=== PATIENT | female | born 1985 | race Caucasian/White ===

== ENCOUNTER 2022-04-30 11:55 | Outpatient (CLI) | payer SELFPAY ==
--- NOTE | 2022-04-30 12:15 | CRLHL7_ITS ---
For Patients: As a result of the Century Cures Act, medical imaging exams and procedure reports are released immediately into your electronic medical record. You may view this report before your referring provider. If you have questions, please contact your health care provider. INDICATION: Evaluate anatomy. COMPARISON: none TECHNIQUE: Real time langley scale imaging of the fetus was performed as well as color Doppler analysis of the umbilical vessels. FINDINGS: Sonographic imaging demonstrates a single living intrauterine gestation. Fetus demonstrates a regular cardiac rate of 150 beats per minute. Fetus has a variable position. The placenta lies anteriorly without evidence of placenta previa. The edge of the placenta is located 5.9 cm from the internal cervical os. Amniotic fluid volume appears normal. Single deepest vertical pocket: 5.7 cm. The cervix is closed and measures 4.3 cm in length. Lower right uterine fibroid is present measuring 3.5 x 2.4 x 3.4 cm. The composite ultrasound gestational age is calculated at 20 weeks 4 days with an estimated sonographic due date of 09/13/2022. The estimated weight is 347 grams which lies at the 73rd %. The following biometric measurements were obtained: Biparietal diameter: 4.7 cm/20 weeks 1 day 63rd% Head circumference: 17.9 cm/20 weeks 2 days 65th% Abdominal circumference: 15.9 cm/21 weeks 0 days 80th% Femur length: 3.1 cm/19 weeks 4 days 32nd% The HC/AC ratio measures: 1.13 range (1.07-1.25) On anatomic survey, there is a normal appearance of the cerebral ventricles, cavum septi pellucidi, cisterna magna and cerebellum. The nose, lips, and facial profile appear normal. The cervical, thoracic and lumbar spine are well visualized and appear normal. There is a normal four-chamber heart view and the left and right ventricular outflow tracts appear normal. The diaphragm and stomach appear normal. The kidneys and bladder also appear normal. There is a normal three-vessel cord and cord insertion site. The four extremities appear normal. IMPRESSION: Concordance of clinical and sonographic dating. No intrinsic abnormalities noted on anatomic survey. Right lower uterine fibroid measuring 3.5 x 2.4 x 3.4 cm. Dictated by Pradip Cantu MD @ 05/01/2022 3:42:26 PM (Electronically Signed)
== END 2022-04-30 11:56 | disposition home or self-care (01) ==
LOC: US 11:57
PROVIDERS: Visit Provider Advanced Practice Midwife
DX: Z34.92 Encounter for supervision of normal pregnancy, unspecified, second trimester (principal); Z3A.20 20 weeks gestation of pregnancy
CPT/HCPCS: 76805

== ENCOUNTER 2022-04-30 14:05 | Outpatient (CLI) | payer SELFPAY ==
[2022-04-30 16:32] LABS: Hepatitis B Surface Antigen* Negative (Negative)
[2022-04-30 16:40] LABS: HIV 1/2/P24 Combo Screen* Negative (Negative)
[2022-04-30 16:49] LABS: Hepatitis C Virus Antibody* Negative (Negative)
[2022-05-02 18:48] LABS: Rubella Antibody IgG 49.2 IU/mL; Varicella-Zoster Virus Ab, IgG 897.5 IV
[2022-05-03 01:21] LABS: Rapid Plasma Reagin (RPR) Non Reactive (Non Reactive)
== END 2022-04-30 14:06 | disposition home or self-care (01) ==
PROVIDERS: Visit Provider Advanced Practice Midwife
DX: Z34.92 Encounter for supervision of normal pregnancy, unspecified, second trimester (principal); O34.12 Maternal care for benign tumor of corpus uteri, second trimester; Z3A.20 20 weeks gestation of pregnancy
CPT/HCPCS: 86592; 86703; 86762; 86787; 86803; 86850; 86900; 86901; 87086; 87340

== ENCOUNTER 2022-07-02 15:11 | Outpatient (CLI) | payer SELFPAY ==
[2022-07-02 13:25] LABS: Amphetamine Screen Urine Negative (Negative); Barbiturate Screen Urine Negative (Negative); Benzodiazepines Screen Urine Negative (Negative); Cannabinoid Screen Urine Negative (Negative); Cocaine Screen Urine Negative (Negative); Methadone Screen Urine Negative (Negative); Methamphetamines Screen Urine Negative (Negative); Opiate Screen Urine Negative (Negative); Oxycodone Screen Urine Negative (Negative); Phencyclidine Screen Urine Negative (Negative); Tricyclic Antidepressant Urine Negative (Negative)
[2022-07-04 00:45] LABS: Rapid Plasma Reagin (RPR) Non Reactive (Non Reactive)
== END 2022-07-02 15:12 | disposition home or self-care (01) ==
PROVIDERS: Visit Provider Advanced Practice Midwife
DX: O09.523 Supervision of elderly multigravida, third trimester (principal); Z3A.29 29 weeks gestation of pregnancy
CPT/HCPCS: 80306; 86592

== ENCOUNTER 2022-08-23 09:11 | Outpatient (CLI) | payer SELFPAY ==
--- NOTE | 2022-08-23 09:15 | CRLHL7_ITS ---
For Patients: As a result of the Century Cures Act, medical imaging exams and procedure reports are released immediately into your electronic medical record. You may view this report before your referring provider. If you have questions, please contact your health care provider. INDICATION: Third trimester scan, evaluate growth. MEASURING LARGE FOR DATES COMPARISON: 04/30/2026 TECHNIQUE: Real time langley scale imaging of the fetus was performed. FINDINGS: Sonographic imaging demonstrates a single living intrauterine gestation. Fetus demonstrates a regular cardiac rate of 147 beats per minute. Fetus has a vertex position. The placenta lies anteriorly. Amniotic fluid volume appears normal and there is a single deepest vertical pocket: 7.6 cm. The estimated weight is 3068gm which lies at the 64th %. On the prior OB ultrasound exam dated 04/30/2022 the estimated weight was at the 73rd%. BPD 49th percentile. HC 71st percentile. AC 90th percentile. FL 7th percentile. The HC/AC ratio measures 0.99 range (0.92-1.06). IMPRESSION: Sonographic gestational age 36 weeks 5 days and sonographic due date 09/15/2022. Good correlation with dates. Normal interval growth. Estimated weight 64th percentile. Abdominal circumference 90th percentile. Anterior uterine fibroid again noted measuring 2.7 x 1.9 x 3.2 cm. Dictated by Pradip Cantu MD @ 08/23/2022 10:24:16 AM (Electronically Signed)
== END 2022-08-23 09:12 | disposition home or self-care (01) ==
LOC: US 09:12
PROVIDERS: Visit Provider Advanced Practice Midwife
DX: O36.63X0 Maternal care for excessive fetal growth, third trimester, not applicable or unspecified (principal); O34.13 Maternal care for benign tumor of corpus uteri, third trimester; Z3A.36 36 weeks gestation of pregnancy
CPT/HCPCS: 76816

== ENCOUNTER 2022-08-23 11:05 | Outpatient (CLI) | payer SELFPAY ==
[2022-08-24 22:23] LABS: Strep B DNA Probe NEGATIVE (Negative)
[2022-08-24 22:51] LABS: Strep B Pen/Amox Allergy No
== END 2022-08-23 11:06 | disposition home or self-care (01) ==
LOC: NFLDREF 11:05
PROVIDERS: Visit Provider Advanced Practice Midwife
DX: Z34.83 Encounter for supervision of other normal pregnancy, third trimester (principal); Z3A.36 36 weeks gestation of pregnancy
CPT/HCPCS: 87081; 87653

== ENCOUNTER 2022-09-19 19:28 | Outpatient (CLI) | payer SELFPAY ==
[2022-09-19 19:43] VITALS: BP 149/85; PULSE 89; RESP 18; TEMP 36.7; O2SAT 99; BMI 35.7
--- NOTE | 2022-09-19 20:01 | ED.NURSE ---
OB at the bedside
--- NOTE | 2022-09-19 20:26 | ED.NURSE ---
Patient ambulated to the bathroom without assistance. Patient steady on her feet. Denies any dizziness.
--- NOTE | 2022-09-19 20:56 | ED_ITS ---
HPI - General Adult General Chief complaint: Head Injury/Pain Stated complaint: Fell on ice, Hit head, 40 weeks 3 days Time Seen by Provider: 09/19/22 20:20 Source: patient Mode of arrival: ambulatory Limitations: no limitations History of Present Illness HPI narrative: 36-year-old female 40+ 3 weeks with her 3rd child presents to the emergency department after head injury. She reports that she slipped on the ice, falling backwards onto her butt and then down to her head. She notes swelling in the back of her head. No loss of consciousness, no anticoagulant use. The baby has been moving very well. She has felt a couple of contractions but none serious. No bleeding, no leakage of fluid. No chest pain, no back pain, no shortness of breath. She feels a ?goose egg? on the occipital area of her scalp. No vision changes. Did feel a little dizzy and nauseated immediately after the episode but nothing since. Has a mild headache since the fall but not prior. No neurological changes noted. Did have a concussion in her 20s, no history of seizure disorder. No history of severe head injuries. No recent surgeries. Past medical history reviewed from her Ob records. Most notable for term , currently doing any time. No long-term medications, no allergies. Is currently on prophylactic valacyclovir. No tobacco or alcohol intoxication. ROS notable for the had an OB symptoms as above, otherwise denies times 12 systems. Related Data Previous Rx's Medication Instructions Recorded valacyclovir 500 mg tablet 500 mg PO BID #60 tabs 09/06/22 (Valtrex) Allergies Allergy/AdvReac Type Severity Reaction Status Date / Time No Known Drug Allergies Allergy Verified 09/19/22 19:46 PFSH PFS Medical History Macrosomic baby Normal spontaneous vaginal delivery Surgical History No significant past surgical history Family History Maternal Grandmother Ovarian cancer Mother Ovarian cancer Paternal Grandfather Bone cancer Prostate cancer Father No problems noted. 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 Partner: Jordan, owns [employer] Lives with: Lives together with children (Camilo and Stefano) Pets: 4 horses and 2 cats Abuse: Denies past/present Special Diet: Denies Ok with a blood transfusion: yes Culture or oriental orthodox beliefs: denies RISK FACTORS Exercise Times/wk: Walk, weight lifting, yoga Depression/Anxiety: denies MULU: 1 PHQ 9: 1 Seat Belt Use: Routinely Smoking: Denies present, 19 years ago Alcohol/day: Denies while , occasional Caffeine: none currently Drug Use: Denies past/present Chicken Pox: Yes as a child MRSA: Denies Smoking Status: Never smoker Little interest or pleasure in doing things: not at all Feeling down, depressed, or hopeless: not at all Exam Const: Vital Signs, click to edit/add: Vital Signs - 24 hr 09/19/22 19:43 Temperature 98.1 F Pulse Rate [Right Pulse Oximeter] 89 Respiratory Rate 18 Blood Pressure [Ri ght Upper Arm] 149/85 H Pulse Oximetry 99 Oxygen Delivery Me thod Room Air Documenting provider has reviewed patient's vital signs: yes Common normals: no apparent distress General appearance: cooperative and well kempt Orientation/consciousness: Yes awake HENMT: Common normals: TM's normal bilaterally Face and sinus: normal facial exam Tympanic membrane: TM's normal bilaterally Mouth: oral and palatal mucosa normal Throat: posterior oropharynx normal Other: Mild swelling, superficial subcutaneous on the occiput of the head. No depression or skull fracture. No active bleeding. Eye: Common normals: PERRL, EOMs intact bilaterally and conjunctivae normal General eye: normal appearance of both eyes Conjunctiva: conjunctiva(e) normal Pupil: PERRL Neck & C-Spine: Common normals: full ROM and no lymphadenopathy Resp: Common normals: normal respiratory effort, no use of accessory muscles and clear to auscultation bilaterally Effort & inspection: able to speak in complete sentences Auscultation: clear to auscultation bilaterally Cardio: Common normals: regular rate, regular rhythm, S1 normal heart sound, S2 normal heart sound, no murmurs and peripheral pulses 2+ throughout Rate: regular rate Rhythm: regular rhythm Heart sounds: S1 normal and S2 normal Peripheral pulses: pulses 2+ throughout GI: Other: Term fundal height. monitor showing lots of active movement, accelerations noted on tracing and also with auscultation during interview. Fundus is nontender. Back & Pelvis: Other: No point bony tenderness to thoracolumbar spine. Can ambulate without significant difficulty. No tenderness to palpation of external hips or pelvis Neuro: [place] Coma Scale: document GCS findings [place] coma scale eye opening: Spontaneous (4) [place] coma scale verbal response: Orientated (5) [place] coma scale motor response: Obey commands (6) [place] coma scale total score: 15 Sensorium/orientation: awake Cranial nerves: CN IX and CN X (glossopharyngeal/vagus) Speech: speech normal Psych: Appearance: well kempt Attitude: engaged Activity/motor behavior: appropriate eye contact Mood and affect: euthymic mood Insight: insight good Judgement: judgment good Skin: Common normals: no rashes or lesions noted General skin exam: no rashes or lesions noted Course Vital Signs Vital signs: Initial Vital Signs Temperature 98.1 F 09/19/22 19:43 Temperature Source Temporal Artery Scan 09/19/22 19:43 Pulse Rate 89 09/19/22 19:43 Respiratory Rate 18 09/19/22 19:43 Blood Pressure 149/85 H 09/19/22 19:43 Blood Pressure Mean 106 09/19/22 19:43 Blood Pressure Position Sitting 09/19/22 19:43 Pulse Oximetry 99 09/19/22 19:43 Oxygen Delivery Method 09/19/22 19:43 Vital Signs Temperature 98.1 F 09/19/22 19:43 Pulse Rate 89 09/19/22 19:43 Respiratory Rate 18 09/19/22 19:43 Blood Pressure 149/85 H 09/19/22 19:43 Pulse Oximetry 99 09/19/22 19:43 Oxygen Delivery Method 09/19/22 19:43 Temperature 98.3 F 09/19/22 21:56 Pulse Rate 75 09/19/22 21:56 Respiratory Rate 16 09/19/22 21:56 Blood Pressure 140/81 H 09/19/22 21:56 Pulse Oximetry 99 09/19/22 19:43 Oxygen Delivery Method 09/19/22 19:43 Medical Decision Making MDM Narrative Medical decision making narrative: No evidence of skull fracture. Will likely develop symptoms of mild concussion. No evidence of intracranial hemorrhage. Do not recommend CT scan. Excellent movement noted. Ob provider recommending 4 hours of monitoring, I agree. Patient will be transferred down to OB. They will notify us if there are any neurological changes. She may be discharged after her Ob observation if there are no further neurological changes. Okay to give Tylenol for headache. Signs and symptoms of concussion were discussed. No care management is needed for the occipital hematoma. Category 1 heart tracing reviewed for time in ED. Discharge Plan Discharge Clinical Impression: Head injury, Concussion without loss of consciousness, Hematoma of occipital region of scalp Patient Disposition: Home w/ Parent or Adult Condition: Stable Activity Level: Activity as Tolerated
[2022-09-19 21:55] VITALS: BP 140/86; PULSE 80
[2022-09-19 21:56] VITALS: BP 140/81; PULSE 75; RESP 16; TEMP 36.8
[2022-09-19 23:57] VITALS: BP 118/69; PULSE 80
--- NOTE | 2022-09-20 01:07 | PC.OBNST ---
NST Note NST Note Start: 09/19/22 21:41 Freq: ONCE Status: Active Protocol: Document 09/20/22 00:58 AM (Rec: 09/20/22 00:59 AM [email or web address]) NST Note 3 Para (# of births) 2 EDC 09/16/22 Gestational Age In Weeks & Days 40 Weeks & 4 Days Patient Presented with Complaint(s) of Other Other Complaints Fall with head injury Reactive Yes Appropriate for Gestational Age Yes RN Palak RNC Date 09/20/22 Reactive Yes Appropriate for Gestational Age Yes RN Cornelius RN Date 09/20/22 OB NST charge Yes Complete NST Note via Write Note Yes The provider's electronic signature indicates the NST is reactive/appropriate for gestational age. *Note to provider: If an addendum is required, open the patient's chart and click on the note under the Nurse/Allied Health tab.
== END 2022-09-20 00:30 | disposition home or self-care (01) ==
LOC: ED 21:12 → OB 21:20 → ED 21:28 → OB 21:37 → OB OUT 09-20 12:31
PROVIDERS: Emergency Provider Family Medicine; Visit Provider Advanced Practice Midwife
DX: O26.893 Other specified pregnancy related conditions, third trimester (principal); W19.XXXA Unspecified fall, initial encounter; Z3A.40 40 weeks gestation of pregnancy
CPT/HCPCS: 59025; 99213; 99283

== ENCOUNTER 2022-09-25 11:29 | Outpatient (CLI) | payer SELFPAY ==
[2022-09-25 12:02] VITALS: PULSE 85; O2SAT 97
[2022-09-25 12:03] VITALS: BP 122/81; PULSE 87; RESP 16; TEMP 37.3
== END 2022-09-25 14:45 | disposition home or self-care (01) ==
LOC: OB OUT 11:32 → OB 11:33
PROVIDERS: Visit Provider Advanced Practice Midwife
DX: O48.0 Post-term pregnancy (principal)
CPT/HCPCS: 59025; 99213

== ENCOUNTER 2022-09-27 13:57 | Outpatient (CLI) | payer SELFPAY ==
--- NOTE | 2022-09-27 14:00 | CRLHL7_ITS ---
For Patients: As a result of the Century Cures Act, medical imaging exams and procedure reports are released immediately into your electronic medical record. You may view this report before your referring provider. If you have questions, please contact your health care provider. OB ULTRASOUND AND BIOPHYSICAL PROFILE TALIA by LMP: 09/16/2022. GA: 41_w, 4 d. Single gestation. INDICATION: Post dates. CERVIX: Not visualized. POSITIONING: Vertex. AMNIOTIC FLUID: 3.8 cm. BIOPHYSICAL PROFILE: Total score: 8. Gross body movements: 2. tone: 2. Respiratory activity: 2. Amniotic fluid: 2. (SDP N: Increase 2 x 1 cm) PLACENTA: Technique: Transabdominal. PLACENTA POSITION: Anterior left wall. DOPPLER: heart rate: 145 bpm. IMPRESSION: Biophysical profile score 8/8. ROLA KEBEDE M.D. Transcribed: 4:15 p.m. [email or web address] be/Dictated by: Rola Kebede MD @ 09/27/2022 3:05:00 PM (Electronically Signed)
== END 2022-09-27 13:58 | disposition home or self-care (01) ==
LOC: US 13:58
PROVIDERS: Visit Provider Advanced Practice Midwife
DX: O48.0 Post-term pregnancy (principal)
CPT/HCPCS: 76819

== ENCOUNTER 2022-09-30 15:56 | Outpatient (CLI) | payer SELFPAY ==
--- NOTE | 2022-09-30 16:00 | CRLHL7_ITS ---
For Patients: As a result of the Century Cures Act, medical imaging exams and procedure reports are released immediately into your electronic medical record. You may view this report before your referring provider. If you have questions, please contact your health care provider. INDICATION: female. Post dates. TECHNIQUE: Obstetrical ultrasound. COMPARISON: September 27, 2022. FINDINGS: Single living intrauterine in vertex presentation. Anterior placenta. heart rate 134 beats per minute. Normal amniotic fluid. Single deepest pocket measurement 5.6 cm. Biophysical profile score 8/8 with 2 points given each for breathing, movement, tone, and amniotic fluid. Biparietal diameter 9.4 cm, 38 weeks 3 days. Head circumference 34.4 cm, 39 weeks 6 days. Abdominal circumference 35.4 cm, 39 weeks 2 days. Femur length 7.3 cm, 37 weeks 3 days. Composite calculated ultrasound age 38 weeks 5 days with a sonographic due date of October 09, 2022. Estimated weight 3,609 g. IMPRESSION: Single living intrauterine in vertex presentation with an anterior placenta. Composite calculated ultrasound age 38 weeks 5 days. Biophysical profile score 8/8. Dictated by Homer Agudelo MD @ 09/30/2022 9:46:12 PM (Electronically Signed)
== END 2022-09-30 15:57 | disposition home or self-care (01) ==
LOC: US 15:57
PROVIDERS: Visit Provider Advanced Practice Midwife
DX: O48.0 Post-term pregnancy (principal)
CPT/HCPCS: 76816; 76819

== ENCOUNTER 2022-10-01 00:41 | Inpatient (IN) | payer SELFPAY ==
[2022-09-30 20:42] VITALS: BP 144/80; PULSE 97; RESP 18; TEMP 36.6
[2022-09-30 21:06] VITALS: BP 124/72; PULSE 95
--- NOTE | 2022-09-30 22:18 | W.PM.LDBA ---
Subjective History of Present Illness Date Seen: 09/30/22 Narrative: Patient is being admitted to Labor and Delivery for labor. She is a 36 year old at 42.0 weeks gestation. Her full history and physical was dictated by MARK Araujo and Heriberto Ty CNM on 08/30/2022. Please see this for details. Radha began vera this morning. They have been irregular but present all day. Over the course of the evening they increased in frequency and intensity. She had a small gush of clear fluid around 1900 this evening and states that she has changed her pad a couple of times since but hasn't had large amounts of fluid. Possible SROM at that time but will monitor discharge. She is appreciating good movement. She is planning on using hypno-birthing and plans on a water . 1. Late entry to care Knew she was but didn't seek care until 20 1/7 weeks gestation UDS 07/02/2022: neg 2. Uterine fibroid 3.5x2.4x3.4 cm, right lower position. On 08/23/22?2.7 x 1.9 x 3.2 cm 3. AMA, Age 36 Genetic screening: declined Level II: n/a, late care with anatomy scan done at [facility] 4. Measuring large for dates @ 34w Growth @ 36w - Normal interval growth. EFW 64th%. Abdominal circumference 90th percentile. 5. Cold sores - denies genital herpes - valtrex script requested and sent 08/09/22 6. Concussion from fall on ice 09/20/2022 Elevated BP in ER, resolved with tylenol and rest Fall on her right side on 09/25 without trama to her belly. OB - Problem Based A/P Additional Plan (1) Pain during labor: Status: Acute (2) Post-dates : Status: Acute (3) Advanced maternal age (AMA) in : Status: Acute (4) Fall due to ice or snow: Status: Acute (5) Head injury: Status: Acute Plan ASSESSMENT:? at 42.0 weeks gestation? GBS negative? Uncomplicated ? Labor post dates. ?? PLAN:? 1. Desires water . Consent signed. Hep C negative.? 2. Candidate for analgesia of choice. Planning unmedicated .? 3. Anticipate ? 4. Expectant management at this time.? 5. IV placement not needed at this time. Consider if patient condition warrants per protocol. 6. Reactive tracing obtained. Intermittent auscultation. Consider intermittent or continuous monitoring if condition changes per unit policy. Delivery/Labor/Induction Plan Plan: expectant management OB Result Labs Blood Type: O (+) positive GBS Status: negative OB Exam Physical Exam Vital signs: Temp Pulse Resp BP 98 F 95 18 124/72 09/30/22 20:42 09/30/22 21:06 09/30/22 20:42 09/30/22 21:06 Narrative: Vitals per EMR? Psychiatric:? Alert and oriented x3? HEENT:? Normocephalic, atraumatic? Neck:? Supple without adenopathy or thyromegaly? Lungs:? Clear to auscultation bilaterally? Heart:? Regular rate and rhythm, no murmur, rub or gallop? Abdomen:? Soft, nontender, and gravid? Extremities:? No edema or erythema? Pelvic:? SVE: 4cm/75%/-1 per RN exam? Membrane status:? possibly ruptured. She feels that she has been leaking a small amount of clear fluid since around 1900.? presentation:? vertex? FHT:? Moderate Variability.? Positive Accels.? No Decels. Baseline 135.? [place]:? Ctx Q3-6min? Detailed Labor and Delivery Exam Patient Gravid: Yes Dilation (cm): 4 Effacement (%): 75 Contraction Frequency: 3-6min Contraction intensity: Moderate Fetus (Single) Station: -1 Heart Rate Baseline: 135 Monitor Accelerations: Present Monitor Decelerations: None Half-Way Variability: Moderate (6-25)
[2022-09-30 22:20] LABS: SARS PCR* Negative SARS-CoV-2 (Negative)
[2022-09-30 22:30] VITALS: TEMP 36.6
[2022-09-30 22:52] VITALS: BMI 37.6
[2022-10-01] VITALS (24 sets, daily range): BP systolic 102–135; BP diastolic 56–79; PULSE 83–98; RESP 16–18; TEMP 36.4–37; O2SAT 97
[2022-10-01] MEDS: IBUPROFEN 600 MG TABLET PO ×4 (02:45→21:48)
--- NOTE | 2022-10-01 03:02 | W.PM.VAGDELN ---
OB Procedure Vag Delivery Mother Details Mother Details: The patient is a 36 year-old, 3, now Para 3, admitted on 09/30/22 at 42.0 Days gestation. Cervical exam on admission was 4 cm/75 % effaced/-1 station with membranes ruptured in vertex presentation.? Contractions were every 4-6 minutes.? heart rate demonstrated baseline 135 bpm with moderate variability, + accelerations, - decelerations; a category 1 tracing.? SROM occurred at 1905 with clear fluid.?Radha progressed well in labor changing positions frequently supported by her and staff. She choose to get into the tub and started to feel the urge to pushnat that time. She pushed well and delivered in the tub. : 3 Para: 3 Weeks Gestation: 42.0 Admission Date: 09/30/22 Additional Details Amniotic Membrane Status: SROM Amniotic Membrane Rupture Date: 09/30/22 Amniotic Membrane Rupture Time: 19:05 Amniotic Membrane Fluid Description: Clear Analgesia/Anesthesia Type: None Waterbirth: Yes [place]: No Intrapartal Events: None Complete: 01:50 (presumed with pushing) Pushin:50 Heart: heart tones during second stage were dopplered in the 120-130's. No decelerations heard. Delivery Details Delivery Date: 10/01/22 Delivery Time: 02:02 Route of delivery: Infant Gender: Male Viability: Alive; Heart Rate Present Position at Delivery: OA (ENIO) Delivery Details: Delivered over intact perineum via spontaneous vaginal delivery. Infant was placed on maternal abdomen.? Cord was clamped and cut after a >5min delay. Nose and mouth were bulb suctioned.? Infant weight pending. 1 Minute Interval Total Score: 8 5 Minute Interval Total Score: 8 Additional Details Shoulder Dystocia: No Placenta Delivery Time: 02:16 Placental Delivery Description: Spontaneous Delivery repair: Vicryl Procedure Done: Global Estimated Blood Loss: 125 (75 QBL and 50 EBL in the tub) Laceration: Perineal - 2nd Degree Episiotomy Description: None Blood Loss Measurement Type: QBL Bakri Used: No Sponge/Need Count Correct: Yes Cord Vessel Description: Nuchal Cord (3 vessel nuchal cord x2. baby was summersaulted at deliver keeping the head close to the perinium. the cord was reduced after delivery. ) Event Summary Status: Mother and infant were stable after delivery.
[2022-10-01] MEDS: ACETAMINOPHEN 500 MG TABLET 1000 MG PO ×3 (04:44→18:12)
[2022-10-01] MEDS: LIDOCAINE 1 % PF 30 ML INJECTION (04:47)
[2022-10-01] MEDS: DOCUSATE SODIUM 100 MG CAPSULE PO (08:05)
[2022-10-01] MEDS: SIMETHICONE 80 MG TAB.CHEW PO (15:38)
[2022-10-02 01:30] VITALS: BP 112/72; PULSE 98; RESP 16; TEMP 36.8; O2SAT 96
[2022-10-02] MEDS: ACETAMINOPHEN 500 MG TABLET 1000 MG PO (01:42)
[2022-10-02] MEDS: IBUPROFEN 600 MG TABLET PO (06:32)
--- NOTE | 2022-10-02 08:39 | PM.OBDSVD1 ---
DS: Providers Provider Date Seen: 10/02/22 Date of admission: 10/01/22 00:41 Primary care physician: Not a Local Provider Admitting Clinician: Theresa Luis CNM Attending Physician on discharge: MARK Garcia with supervision by Cecilia Ty CNM Date of Discharge: 10/02/22 DS: Diagnosis Discharge Diagnosis (1) care and examination immediately after delivery: Status: Acute (2) Lactating mother: Status: Acute Exam Narrative: Exam Narrative: GENERAL APPEARANCE:? normal affect, alert, no distress? MOOD:? appropriate? CHEST:? clear to auscultation? HEART:? regular rate and rhythm? ABDOMEN:? soft, non-tender the uterine fundus is At Umbilicus, Midline and is appropriate for the stage of recovery.? PERINEUM:? mild edema of the perineum, there is a Perineal Laceration,? first degree that is healing well.? EXTREMITIES:? normal and trace edema? Const: Vital Signs, click to edit/add: Vital Signs - 24 hr 10/01/22 12:47 10/01/22 15:40 10/01/22 20:15 Temperature 98.1 F 97.5 F L 97.8 F Pulse Rate [Bilate ral] 95 94 98 Respiratory Rate 16 16 16 Blood Pressure [Le ft Arm] 118/68 102/67 122/78 Pulse Oximetry 97 97 97 Oxygen Delivery Me thod Room Air Room Air Room Air 10/02/22 01:30 Temperature 98.2 F Pulse Rate [Bilate ral] 98 Respiratory Rate 16 Blood Pressure [Le ft Arm] 112/72 Pulse Oximetry 96 Oxygen Delivery Me thod Room Air Documenting provider has reviewed patient's vital signs: yes OB - DS: Summary Hospital Course Hospital Course: Radha is a 36 year old G 3 now P 3 at 42.1 weeks gestation that was admitted to the Center on 10/01/22 for labor. She had an uncomplicated vaginal delivery. She delivered a viable male . the patient has done well. Continues to have concussion symptoms of headache and soreness from a fall on the ice prior to delivery. The pain is well controlled with current medications.? She has no new complaints.? Urinary output is adequate and she is voiding without difficulty.? Has a good appetite, is tolerating a general diet, is passing flatus, and has not yet had a bowel movement.? Has small amount of rubra lochia.? She is ambulating well. She is and reports it is going well. ? Peripartum Data delivery method: Vaginal Laceration description: Perineal - 2nd Degree complications: none Infant Gender: Male Discharge Plan: Home Status at Discharge Functional status at discharge: independent ambulation Overall status at discharge: patient is progressing back to baseline Time Spent with Patient Time attestation: Total time spent providing and/or coordinating discharge services: Time spent: Less than 30 minutes Discharge Plan Discharge Disposition: Home, Self-Care Date of Admission: 10/01/22 00:41 Attending Provider on Discharge: Cecilia Ty Primary Care Provider: Provider,Not a Local Condition: Stable Anticipated Discharge Date/Time: 10/02/22 12:00 Discharge Medications: New acetaminophen 500 mg Tablet 1,000 mg PO Q6H PRN (Reason: pain/fever) Qty: 0 0RF docusate sodium 100 mg Capsule 100 mg PO DAILY Qty: 60 0RF ibuprofen 600 mg Tablet 600 mg PO Q6H PRNQty: 0 0RF Continued acetaminophen 500 mg capsule 500 mg PO .as needed PRN (Reason: pain) DHA 200 mg capsule 200 mg PO DAILY Discontinued valacyclovir [Valtrex] 500 mg tablet 500 mg PO BID Qty: 60 1RF Discharge Orders: Discharge Order (Routine); Ordered 10/02/22 Ordered By: Cecilia Ty Patient Education: OB Over the Counter Medication Information, OB Vaginal/Breast Feeding Additional Instructions: Discharge instructions were reviewed with the patient including signs and symptoms of infection and home going medications Nothing vaginally for 6 weeks: no tampons or intercourse Off Work or School for 6 weeks 2-week visit: discuss feeding concerns, review control options and screen for anxiety/depression. 6-week visit for an annual exam. consultation services are available to all mothers and babies for the first year after delivery.? To make an appointment, please call [phone]. Activity Level: Activity as Tolerated Discharge Diet: Regular Follow Up Appointments: [facility] [Provider Group] Provider,Not a Local [Primary Care Provider] - (For Concussion) Forms: [employer] Info Instructions
[2022-10-02 09:00] VITALS: BP 137/79; PULSE 94; RESP 16; TEMP 36.8; O2SAT 96
[2022-10-02] MEDS: DOCUSATE SODIUM 100 MG CAPSULE PO (11:04)
== END 2022-10-02 14:35 | disposition home or self-care (01) | DRG 807 ==
LOC: OB OUT 00:42 → OB 00:42
PROVIDERS: Admitting Provider Advanced Practice Midwife; Visit Provider Advanced Practice Midwife
DX: O48.0 Post-term pregnancy (principal); Z37.0 Single live birth; O09.523 Supervision of elderly multigravida, third trimester; O70.1 Second degree perineal laceration during delivery; W00.9XXA Unspecified fall due to ice and snow, initial encounter; S09.90XA Unspecified injury of head, initial encounter; Z3A.42 42 weeks gestation of pregnancy
CPT/HCPCS: 87635; 99213; A9270; J2001

== ENCOUNTER 2022-11-06 07:09 | Outpatient (CLI) | payer SELFPAY ==
--- NOTE | 2022-11-06 07:15 | CRLHL7_ITS ---
For Patients: As a result of the Century Cures Act, medical imaging exams and procedure reports are released immediately into your electronic medical record. You may view this report before your referring provider. If you have questions, please contact your health care provider. INDICATION: Headache. Nausea. TECHNIQUE: Multiplanar multisequence noncontrast MR images acquired through the brain. COMPARISON: None. FINDINGS: The ventricles and sulci are within normal limits for patient age. No mass effect or midline shift. Punctate FLAIR hyperintensity within the anterior right frontal white matter (series 4, image 21), nonspecific. No intracranial hemorrhage or pathologic extra-axial fluid collection. No diffusion restriction to suggest acute infarction. The major arterial flow voids of the skullbase are preserved. The globes are symmetric. The paranasal sinuses are well aerated. The mastoid air cells are clear. IMPRESSION: 1. No acute infarction, mass effect, or intracranial hemorrhage. 2. Punctate FLAIR hyperintensity within the right frontal white matter is nonspecific, though most typical for sequelae of minimal chronic microvascular ischemic change or migraine headaches. Dictated by Raul Kc MD @ 11/06/2022 8:14:50 AM (Electronically Signed)
== END 2022-11-06 07:10 | disposition home or self-care (01) ==
LOC: MRI 07:10
PROVIDERS: PCP Nurse Practitioner Family; Visit Provider Nurse Practitioner Family
DX: R51.9 Headache, unspecified (principal); R11.0 Nausea; S09.90XA Unspecified injury of head, initial encounter
CPT/HCPCS: 70551